=== PATIENT | female | born 1965 ===

== ENCOUNTER 2016-11-10 13:58 | Emergency (ER) | payer OTHER ==
[2016-11-10 14:15] VITALS: BP 133/80
[2016-11-10] MEDS ORDERED: Lidocaine 2% Viscous Solution 100 ML Bottle PO ONE (14:45)
--- NOTE | 2016-11-10 14:51 | EDM.PDOC ---
ED HPI GENERAL MEDICAL PROBLEM - General Chief Complaint: ENT Problem Stated Complaint: food stuck in throat Time Seen by Provider: 11/10/16 14:15 Source of Information: Reports: Patient History Limitations: Reports: No Limitations - History of Present Illness INITIAL COMMENTS - FREE TEXT/NARRATIVE: According to patient she claims that she had stake late morning and as she was eating she felt food stuck in her midchest. since then she has not been able to swallow any fluid or saliva. has been wretching on and off and has not vomited. Pt has been trying to drink water to see if the food would move and has not had any success. No hoarseness or voice, shortness of breath. No abdominal pain. No wheezing, cough. no other complaints. Pt claims that she has been having similar episodes on and off for the past 2 months, but this time the feeling of food stuck has not resolved. Onset: Today Onset Date: 11/10/16 Duration: Intermittent Severity: Moderate Improves with: Reports: None Worsens with: Reports: None Associated Symptoms: Denies: Confusion, Chest Pain, Fever/Chills, Nausea/ Vomiting, Shortness of Breath Throat Pain Score (Numeric/FACES): 2 - Related Data Allergies Allergy/AdvReac Type Severity Reaction Status Date / Time No Known Allergies Allergy Verified 11/10/16 14:09 Home Meds: Home Meds Omeprazole 20 mg PO DAILY 11/10/16 [History] Past Medical History HEENT History: Reports: Other (See Below) Other HEENT History: Hx of food getting stuck in throat x 2 months. Usually comes up on its own but will not today. Ate steak this am with hasbrowns and has been uaable to keep anything down since then. Social & Family History - Family History Family Medical History: Noncontributory - Tobacco Use Smoking Status *Q: Never Smoker Second Hand Smoke Exposure: No - Caffeine Use Caffeine Use: Reports: Coffee - Alcohol Use Days Per Week of Alcohol Use: 1 Number of Drinks Per Day: 3 Total Drinks Per Week: 3 - Recreational Drug Use Recreational Drug Use: No ED ROS GENERAL - Review of Systems Review Of Systems: See Below Constitutional: Denies: Fever, Chills HEENT: Denies: Rhinitis, Sinus Problem, Throat Pain, Throat Swelling Respiratory: Denies: Shortness of Breath, Cough, Sputum Cardiovascular: Denies: Chest Pain, Lightheadedness GI/Abdominal: Reports: Vomiting. Denies: Abdominal Pain, Bloody Stool, Difficulty Swallowing, Hematemesis, Hematochezia, Nausea : Denies: Dysuria, Flank Pain Musculoskeletal: Denies: Joint Pain, Joint Swelling Skin: Denies: Pruritis, Rash Neurological: Denies: Dizziness, Seizure, Syncope, Difficulty Walking Psychiatric: Denies: Agitation, Anxiety Hematologic/Lymphatic: Denies: Anemia, Easy Bleeding ED EXAM, GENERAL - Physical Exam Exam: See Below Exam Limited By: No Limitations General Appearance: Alert, WD/WN, No Apparent Distress, Other (keeps wretching on and off with clear secretions) Eye Exam: Bilateral Eye: EOMI, PERRL Ears: Normal External Exam, Normal Canal, Hearing Grossly Normal, Normal TMs Ear Exam: Bilateral Ear: Auricle Normal, Canal Normal, TM normal Nose: Normal Inspection, Normal Mucosa, No Blood Throat/Mouth: Normal Inspection, Normal Lips, Normal Teeth, Normal Gums, Normal Oropharynx, Normal Voice, No Airway Compromise Head: Atraumatic, Normocephalic Neck: Normal Inspection, Supple, Non-Tender, Full Range of Motion Respiratory/Chest: No Respiratory Distress, Lungs Clear, Normal Breath Sounds, No Accessory Muscle Use, Chest Non-Tender Cardiovascular: Normal Peripheral Pulses, Regular Rate, Rhythm, No Edema, No Gallop, No JVD, No Murmur, No Rub GI/Abdominal: Normal Bowel Sounds, Soft, Non-Tender, No Organomegaly, No Distention, No Abnormal Bruit, No Mass Extremities: Normal Inspection, Normal Range of Motion, Non-Tender, Normal Capillary Refill, No Pedal Edema Skin Exam: Warm, Intact Course - Vital Signs Text/Narrative:: pt does appear like she has probably piece of stake stuck in the lower oesophagus. She did receive Xylocaine [id number] ml, which did not help her and she continues to feel the food in the midchest. She did receive Glucogan 1mg IM following which after 15 minutes the pressure feeling in the chest resolved. Pt was able to drink fluids with out wretching or vomiting. She did drink some juice too. It does appear like patient has had these episodes on and off for the past 2 months. She might have oesophageal spasm or diverticulum or some pathology starting in her esophagus. I have advised to stay of soft diet for now. Also I have advised patient to followup with her primary care and have it further worked up with upper GI studies. Last Recorded V/S: Last Vital Signs Temp 98 F 11/10/16 14:13 Pulse 78 11/10/16 14:13 Resp 16 11/10/16 14:13 BP 133/80 11/10/16 14:13 Pulse Ox 98 11/10/16 14:13 - Orders/Labs/Meds Meds: Medications Discontinued Medications Generic Name Dose Route Start Last Admin Trade Name Lili PRN Reason Stop Dose Admin Glucagon 1 mg 11/10/16 14:56 11/10/16 14:59 Glucagen IM 11/10/16 14:57 1 mg ONETIME ONE Administration Lidocaine HCl 20 ml 11/10/16 14:45 11/10/16 14:40 Xylocaine 2% Viscous PO 11/10/16 14:46 20 ml ONETIME ONE Administration Departure - Departure Time of Disposition: 15:50 Disposition: Home, Self-Care 01 Condition: fair Clinical Impression: Esophageal spasm - Discharge Information Forms: ED Department Discharge Additional Instructions: pt does appear like she has probably piece of stake stuck in the lower oesophagus. She did receive Xylocaine [id number] ml, which did not help her and she continues to feel the food in the midchest. She did receive Glucogan 1mg IM following which after 15 minutes the pressure feeling in the chest resolved. Pt was able to drink fluids with out wretching or vomiting. She did drink some juice too. It does appear like patient has had these episodes on and off for the past 2 months. She might have oesophageal spasm or diverticulum or some pathology starting in her esophagus. I have advised to stay of soft diet for now. Also I have advised patient to followup with her primary care and have it further worked up with upper GI studies. - Problem List & Annotations (1) Esophageal spasm SNOMED Code(s): 02475762 Code(s): K22.4 - DYSKINESIA OF ESOPHAGUS Status: Acute Current Visit: Yes - Problem List Review Problem List Initiated/Reviewed/Updated: Yes - Assessment/Plan Assessment:: Oesophageal spasm Plan: pt does appear like she has probably piece of stake stuck in the lower oesophagus. She did receive Xylocaine [id number] ml, which did not help her and she continues to feel the food in the midchest. She did receive Glucogan 1mg IM following which after 15 minutes the pressure feeling in the chest resolved. Pt was able to drink fluids with out wretching or vomiting. She did drink some juice too. It does appear like patient has had these episodes on and off for the past 2 months. She might have oesophageal spasm or diverticulum or some pathology starting in her esophagus. I have advised to stay of soft diet for now. Also I have advised patient to followup with her primary care and have it further worked up with upper GI studies.
[2016-11-10] MEDS ORDERED: Glucagon,Human Recombinant 1 MG Vial IM ONE (14:56)
== END 2016-11-10 15:45 | disposition home or self-care (01) ==
LOC: LB.ED 13:58
DX: K22.4 Dyskinesia of esophagus (principal); Z79.899 Other long term (current) drug therapy
CPT/HCPCS: 96372; 99283; A9270; J1610